=== PATIENT | female | born 1980 | race Two or more races ===

== ENCOUNTER 2023-01-22 13:25 | Emergency (ER) | payer OTHER ==
[~2023-01-22] VITALS: Ht 160 cm; Wt 61.2 kg
[~2023-01-22 13:25] MED LIST: CEFUROXIME500 MG
== END 2023-01-22 16:11 | disposition home or self-care (01) ==
LOC: ER 13:25
PROVIDERS: General Practice
DX: N39.0 Urinary tract infection, site not specified (principal)